=== PATIENT | female | born 1955 | race Caucasian/White ===

== ENCOUNTER 2018-06-09 16:49 | Emergency (ER) | payer MEDICAID, SELFPAY ==
[~2018-06-09] VITALS: Ht 170.2 cm; Wt 88.0 kg
--- NOTE | 2018-06-09 16:59 | NUR ---
BIB [facility] FOR ANXIETY AND SOB X10 MINUTES. PT STATES IT SHE STARTED BREATHING FAST AND BECAME ANXIOUS. WAS UNABLE TO CALM PT SO SHE CALLED EMS. CONNECTED TO ALL MONITORS. VSS. NO NEEDS AT THIS TIME. CALL LIGHT WITHIN REACH. AWAITING EDMD ASSESSMENT.
[2018-06-09] MEDS ORDERED: LORazepam 1MG TABLET PO ONE (17:30)
[2018-06-09 17:46] LABS: BASOPHILS # (AUTO) 0.04 x10^3/uL (0-0.1); BASOPHILS % (AUTO) 0 % (0-1); EOSINOPHILS # (AUTO) 0.14 x10^3/uL (0-0.4); EOSINOPHILS % (AUTO) 2 % (1-7); LYMPHOCYTES # (AUTO) 3.04 x10^3/uL (1-3.4); LYMPHOCYTES % (AUTO) 33 % (22-44); MD NO; MEAN CORPUSCULAR HEMOGLOBIN 30.8 pg (27.0-34.8); MEAN CORPUSCULAR HGB CONC 33.7 g/dL (32.4-35.8); MEAN CORPUSCULAR VOLUME 91.2 fL (80-100); MEAN PLATELET VOLUME 8.1 fL (7.4-10.4); MONOCYTES # (AUTO) 0.61 x10^3/uL (0.2-0.8); MONOCYTES % (AUTO) 7 % (2-9); NEUTROPHILS # (AUTO) 5.34 x10^3/uL (1.8-6.8); NEUTROPHILS % (AUTO) 58 % (42-75); PLATELET COUNT 294 x10^3/uL (130-400); RED BLOOD COUNT 4.48 x10^6/uL (3.82-5.3)
[2018-06-09 17:52] LABS: ALBUMIN 3.8 g/dL (3.4-5.0); ANION GAP 5 mmol/L (5-15); CHLORIDE 111 mmol/L (98-107); CREATININE 0.98 mg/dL (0.55-1.02)
[2018-06-09 17:56] LABS: TROPONIN I < 0.015 ng/mL (0.000-0.045)
[2018-06-09] MEDS ORDERED: LORazepam 1MG TABLET ONE (17:57)
[2018-06-09] MEDS ORDERED: LEVO112T4 PO (18:17)
[2018-06-09] MEDS ORDERED: ATOR40TA78 PO (18:17)
[2018-06-09] MEDS ORDERED: CARV6.252 PO (18:17)
[2018-06-09] MEDS ORDERED: ZOLP10TA5 PO (18:17)
[2018-06-09] MEDS ORDERED: LISI5TAB7 PO (18:17)
[2018-06-09] MEDS ORDERED: SERT100T PO (18:17)
[2018-06-09] MEDS ORDERED: NORT25CA2 PO (18:17)
[2018-06-09] MEDS ORDERED: ASPI-696 PO (18:17)
[2018-06-09] MEDS ORDERED: OMEP-110 PO (18:17)
--- NOTE | 2018-06-09 18:35 | NUR ---
ALL RESULTS BACK AT THIS TIME. CHART UP FOR RECHECK. VSS. PT RESTING IN ROOM WITH FAMILY AT BEDSIDE. NO NEEDS AT THIS TIME. CALL LIGHT WITHIN REACH.
[2018-06-09 18:36] VITALS: BP 127/65
== END 2018-06-09 19:41 | disposition home or self-care (01) ==
LOC: ED 19:20
DX: F41.1 Generalized anxiety disorder (principal); R06.03 Acute respiratory distress
CPT/HCPCS: 36415; 71046; 80048; 82040; 84484; 85025; 93005; 99284